=== PATIENT | male | born 1990 | race Asian ===

== ENCOUNTER 2019-11-01 18:53 | Emergency (ER) | payer OTHER ==
[~2019-11-01] VITALS: Ht 175.3 cm; Wt 80.7 kg
[2019-11-01 19:00] VITALS: BP 180/90
== END 2019-11-01 22:20 | disposition home or self-care (01) ==
LOC: ER 18:53
DX: S23.9XXA Sprain of unspecified parts of thorax, initial encounter (principal); X58.XXXA Exposure to other specified factors, initial encounter; Y93.89 Activity, other specified; Y92.89 Other specified places as the place of occurrence of the external cause; Y99.8 Other external cause status
CPT/HCPCS: 71250; 74176